=== PATIENT | male | born 1960 | race Caucasian/White ===

== ENCOUNTER → 2017-10-20 16:19 | Outpatient (CLI) | payer MEDICARE ==
[2012-02-10 12:42] VITALS: BMI 48.2
[~2017-10-20 16:19] MED LIST: AMITRIPTYLINE H50 MG PO; COLCRYS0.6 MG PO; COREG6.25 MG PO; DICLOFENAC SODI50 MG PO; DILAUDID2 MG PO; FOLIC ACID1 MG PO; HYDROCODONE-APA1 TAB PO; KLOR-CON M2020 MEQ PO; LASIX40 MG PO; LIPITOR10 MG PO; LISINOPRIL5 MG PO; LYRICA75 MG PO; OMEPRAZOLE20 M1 PO; SYNTHROID100 MCG PO; TRICOR145 MG PO; ULORIC80 MG PO; VITAMIN B-1100 M1 PO; VITAMIN B-121000 MCG PO; VITAMIN B650 MG PO; VODKA PO; XANAX1 MG PO; XARELTO10 MG PO; XARELTO20 MG PO
[2017-12-03 11:33] VITALS: BMI 39.3
== END | disposition home or self-care (01) ==
LOC: D.LABREF 16:19
DX: M17.12 Unilateral primary osteoarthritis, left knee (principal); Z11.8 Encounter for screening for other infectious and parasitic diseases

== ENCOUNTER 2017-11-23 10:00 | Inpatient (IN) | payer MEDICARE, BC ==
[~2017-11-23] VITALS: Ht 182.9 cm; Wt 131.8 kg
--- NOTE | ~2017-11-23 | OP ---
PATIENT NAME: RAPHAEL BARGER MEDICAL RECORD: [id number] :60 LOCATION:[id number] ADMISSION DATE:11/28/17 SURGEON: MAGGI PIMENTEL MD DATE OF OPERATION: 11/28/2017 PREOPERATIVE DIAGNOSES: 1. Severe degenerative arthritis of the left knee. 2. Retained hardware from prior surgery. POSTOPERATIVE DIAGNOSES: 1. Severe degenerative arthritis of the left knee. 2. Retained hardware from prior surgery. PROCEDURE: 1. Left total knee arthroplasty. 2. Removal of previously placed hardware. SURGEON: Maggi Pimentel MD MANGLE ROLLER: DELFIN Sanchez. INTRAOPERATIVE COMPLICATIONS: None. SUMMARY OF PATHOLOGIC FINDINGS: The patient had severe degenerative arthritis tricompartmentally with extensile osteophytosis. Furthermore, the patient had 2 previously placed nick in 1975, which had to be removed. Removal of the femoral staple was relatively easy; however, upon trialed removal of the tibial nick, small medial tibial plateau fracture was incurred. This was intraoperatively fixed with a 4.0 compression cannulated screw and gave excellent stability. IMPLANTS USED: Hawthorne triathlon total knee arthroplasty with a size 7 cruciate retaining femoral component, a size 6 universal tibial baseplate with a cemented 12 x 50 mm stem, a size 6 CS 9 mm insert, and a size 33 x 9 polyethylene component. Note, all components were cemented into place. INDICATIONS: Mr. Barger is a 57-year-old gentleman who originally had a traumatic injury to his knee in the 1970s and had multiple operative interventions. Eventually, he had severe osteoarthritis as noted above. After all conservative measures had failed, he presented for total knee arthroplasty. OPERATIVE SUMMARY IN DETAIL: After obtaining the appropriate preoperative orthopedic surgery consent as well as anesthetic consultation, evaluation and clearance, the patient was brought to the operating room and placed on the operating table in supine position. After general laryngeal mask airway was administered, the patient's left lower extremity was prepped and draped in routine sterile fashion. Please note that the tourniquet was not used on this case at all given the patient's extreme hypercoagulable state. Incision was made for paramedian arthrotomy. At all times, Aquamantys was used to control bleeding. Paramedian arthrotomy was performed and again Aquamantys was used to control all retinacular bleeding along with the intraoperative Bovie. Immediately upon entering the joint, the patient's severe osteoarthritis was noted. Dissection was carried down, the patella was everted, the distal fat pad was removed. Substantial osteophytes were removed about the anterior aspect of the tibia, medial and lateral aspect of the femur as well as superior aspect of OPERATIVE REPORT [id number] RAPHAEL BARGER the femur. Intramedullary guide hole was created for distal femoral intramedullary guided cuts. After cutting the distal femur, attention was turned to the proximal tibia. Likewise here, intramedullary guide hole was created. Upon cutting the proximal tibia, the staple was encountered, cut around. The staple was divided and a substantial amount of time was taken to try and remove the staple. Small medial tibial plateau fracture was incurred. Large reduction clamps were then utilized to hold it in place as the staple was removed. At this point, a small 45 mm compression screw was placed across the fracture and resulted in excellent stability to continue with the total knee. After cutting and smoothing the tibial baseplate, the appropriate measurements were taken. Distal femoral chamfer cuts were then made and the trials were put into place. Trials were put into place and placed in the appropriate position, pinned, and taken through range of motion and found to be stable in all planes. Having completed this, the distal femur was repaired and the proximal tibia was then prepared for a 50 mm x 12 cemented stem for added stability of these large bands of tibial plateau. Having completed all the preparations and all trial components had been removed, the patella was cut for resurfacing and prepared for final implantation. At this point, prior to putting the total knee in, a substantial amount of time was taken to clean out substantial amount of loose bodies osteophytes from the posterior aspect of the knee as well as around the capsule of the knee. The Aquamantys was then used to coagulate the posterior capsule. Having completed this, the bone ends were copiously irrigated with pulsatile lavage irrigation, dried, and the components were put into place. All excess cement was removed. After the cement was allowed to harden, the knee was taken through range of motion and found to be stable in all planes. Further irrigation was then followed by placing a [address] Capsule was then closed with #2 Ethibond followed by #1 Vicryl, 2-0 Vicryl and skin nick. This was then further dressed with a Prevena wound suction drainage. Having completed this, sterile dressings were applied. The patient was awakened, taken to recovery room in stable condition. All final needle and sponge counts were correct. TRANSINT:[id number] Voice Confirmation ID: [id number] DOCUMENT ID: [id number] MAGGI PIMENTEL MD at 1419 CC: [id number] DICTATION DATE: 11/28/17 1252 KILN LABOURER: 11/28/17 1313 ADM IN [facility] [address] [id number]
[~2017-11-23 10:00] MED LIST changes: -DILAUDID2 MG PO; -VODKA PO; -XARELTO20 MG PO
[2017-11-23 12:46] LABS: BASOPHILS 0.4 % (0-2); EOSINOPHILS 0 % (0-7); HEMATOCRIT 42.4 % (42.0-54.0); HEMOGLOBIN 15.8 g/dL (13.5-17.5); IMMATURE GRANULOCYTES 0.4 % (0-5); LYMPHOCYTES 34.9 % (15-50); MCH 36.1 pg (26.0-34.0); MCHC 37.3 g/dL (31.0-37.0); MCV 96.8 fL (80.0-100.0); MEAN PLATELET VOLUME 8.9 fL (7.4-10.4); MONOCYTES 7.8 % (2-11); NEUTROPHILS 56.5 % (40-80); PLATELET COUNT 176 10x3/uL (130-400); RBC 4.38 10x6/uL (4.20-6.10); RDW 15.3 % (11.5-14.5); WBC 5.3 10x3/uL (4.8-10.8)
[2017-11-23 12:58] LABS: APTT 30.5 SECONDS (22.8-39.4); CALC OSMOLALITY 262 mosm/kg (275-300); CALCIUM 8.4 mg/dL (8.5-10.1); CARBON DIOXIDE 22.3 mmol/L (21.0-32.0); CHLORIDE - SERUM 92 mmol/L (98-107); CREATININE - SERUM 0.8 mg/dL (0.6-1.3); GLUCOSE 90 mg/dL (74-106); INR 1.15 (0.85-1.17); POTASSIUM - SERUM 3.5 mmol/L (3.5-5.1); PROTIME 14.3 SECONDS (11.6-15.0); SODIUM 132 mmol/L (136-145); UREA NITROGEN 8 mg/dL (7-18); eGFR NON AFRICAN AMERICAN > 90 mL/min (90-120)
[2017-11-23 13:14] LABS: APPEARANCE CLEAR (CLEAR); BILIRUBIN NEGATIVE (NEGATIVE); COLOR YELLOW (YELLOW); GLUCOSE NEGATIVE (NEGATIVE); KETONE SMALL mg/dL (NEGATIVE); NITRITE NEGATIVE (NEGATIVE); PROTEIN NEGATIVE (NEGATIVE); SPECIFIC GRAVITY 1.015 (1.005-1.020); UROBILINOGEN NORMAL (NORMAL)
[2017-11-28 07:05] VITALS: BP 136/78; BMI 39.4
[2017-11-28 07:37] LABS: APTT 30.3 SECONDS (22.8-39.4); INR 0.98 (0.85-1.17); PROTIME 12.6 SECONDS (11.6-15.0)
[2017-11-28 11:44] VITALS: BP 139/115
[2017-11-28 12:23] VITALS: BP 135/84; BMI 39.4
[2017-11-28 21:01] VITALS: BP 117/67
[2017-11-29 04:57] VITALS: BP 125/77
[2017-11-29 06:23] LABS: HEMATOCRIT 31.1 % (42.0-54.0); HEMOGLOBIN 11.1 g/dL (13.5-17.5); MCH 35.4 pg (26.0-34.0); MCHC 35.7 g/dL (31.0-37.0); MEAN PLATELET VOLUME 9.7 fL (7.4-10.4); RBC 3.14 10x6/uL (4.20-6.10); RDW 15.3 % (11.5-14.5); WBC 8.6 10x3/uL (4.8-10.8)
[2017-11-29 13:27] VITALS: BP 128/87
[2017-11-29 17:44] VITALS: BP 153/79
[2017-11-29 19:28] VITALS: Ht 182.9 cm; Wt 131.8 kg
[2017-11-29 21:10] VITALS: BP 136/85
[2017-11-30 05:07] VITALS: BP 143/91
[2017-11-30 05:10] LABS: HEMATOCRIT 29.7 % (42.0-54.0); HEMOGLOBIN 10.3 g/dL (13.5-17.5); MCH 35.4 pg (26.0-34.0); MCHC 34.7 g/dL (31.0-37.0); MEAN PLATELET VOLUME 9.2 fL (7.4-10.4); RBC 2.91 10x6/uL (4.20-6.10); RDW 15.9 % (11.5-14.5)
[2017-11-30 05:21] LABS: MCV 102.1 fL (80.0-100.0); WBC 6.3 10x3/uL (4.8-10.8)
[2017-11-30 08:48] VITALS: BP 140/80
[2017-11-30 12:10] VITALS: BP 135/87
[2017-11-30 16:57] VITALS: BP 117/74
[2017-11-30 21:11] VITALS: BP 129/82
[2017-12-01] VITALS (9 sets, daily range): BP systolic 129–156; BP diastolic 70–96
[2017-12-01 09:24] LABS: BASOPHILS 0.2 % (0-2); EOSINOPHILS 1.2 % (0-7); HEMATOCRIT 28.2 % (42.0-54.0); HEMOGLOBIN 9.8 g/dL (13.5-17.5); MCH 35.9 pg (26.0-34.0); MCHC 34.8 g/dL (31.0-37.0); MCV 103.3 fL (80.0-100.0); MEAN PLATELET VOLUME 8.8 fL (7.4-10.4); MONOCYTES 12.6 % (2-11); PLATELET COUNT 100 10x3/uL (130-400); RBC 2.73 10x6/uL (4.20-6.10); RDW 16.1 % (11.5-14.5); WBC 4.9 10x3/uL (4.8-10.8)
[2017-12-01] MEDS ORDERED: XARELTO20 MG PO (12:29)
[2017-12-01] MEDS ORDERED: DILAUDID2 MG PO (12:30)
[2017-12-01] MEDS ORDERED: VODKA PO (12:32)
[2017-12-02 04:44] VITALS: BP 125/82
[2017-12-02 08:36] VITALS: BP 135/83
[2017-12-02 09:24] LABS: MCH 35.4 pg (26.0-34.0); MCHC 34.4 g/dL (31.0-37.0); MCV 102.9 fL (80.0-100.0); MEAN PLATELET VOLUME 8.7 fL (7.4-10.4); RDW 17.2 % (11.5-14.5)
[2017-12-02 09:25] LABS: HEMOGLOBIN 12.4 g/dL (13.5-17.5); RBC 3.5 10x6/uL (4.20-6.10); WBC 6.6 10x3/uL (4.8-10.8)
[2017-12-02 12:07] VITALS: BP 153/86
== END 2017-12-02 18:25 | DRG 470 ==
LOC: D.MS 11-28 06:35 → D.SDCHOLD 11-28 06:35 → D.MS 11-28 11:26
PROVIDERS: Anesthesiology; Internal Medicine Hematology & Oncology; Orthopaedic Surgery
PROC: 0QSH04Z Reposition Left Tibia with Internal Fixation Device, Open Approach (ICD-10-PCS; 2017-11-28)
PROC: 0SRD0J9 Replacement of Left Knee Joint with Synthetic Substitute, Cemented, Open Approach (ICD-10-PCS; principal; 2017-11-28 08:15)
DX: M17.12 Unilateral primary osteoarthritis, left knee (principal); M96.672 Fracture of tibia or fibula following insertion of orthopedic implant, joint prosthesis, or bone plate, left leg; D68.51 Activated protein C resistance; Y83.9 Surgical procedure, unspecified as the cause of abnormal reaction of the patient, or of later complication, without mention of misadventure at the time of the procedure; Y82.8 Other medical devices associated with adverse incidents; E11.9 Type 2 diabetes mellitus without complications; I10 Essential (primary) hypertension; I73.9 Peripheral vascular disease, unspecified; I95.9 Hypotension, unspecified; E66.9 Obesity, unspecified; Z68.39 Body mass index [BMI] 39.0-39.9, adult; Z86.718 Personal history of other venous thrombosis and embolism; D69.6 Thrombocytopenia, unspecified

== ENCOUNTER 2017-11-24 13:47 | Emergency (ER) | payer MEDICARE, BC ==
[~2017-11-24] VITALS: Ht 182.9 cm; Wt 131.8 kg
[2017-11-24 14:05] VITALS: Ht 182.9 cm; Wt 131.8 kg
[2017-11-24 15:23] LABS: BASOPHILS 0.2 % (0-2); EOSINOPHILS 1.7 % (0-7); HEMATOCRIT 41.9 % (42.0-54.0); HEMOGLOBIN 15.3 g/dL (13.5-17.5); IMMATURE GRANULOCYTES 0.6 % (0-5); LYMPHOCYTES 14.9 % (15-50); MCH 36.3 pg (26.0-34.0); MCHC 36.5 g/dL (31.0-37.0); MCV 99.5 fL (80.0-100.0); MEAN PLATELET VOLUME 9.1 fL (7.4-10.4); MONOCYTES 9.8 % (2-11); NEUTROPHILS 72.8 % (40-80); PLATELET COUNT 141 10x3/uL (130-400); RBC 4.21 10x6/uL (4.20-6.10); RDW 15.5 % (11.5-14.5); WBC 5.3 10x3/uL (4.8-10.8)
[2017-11-24 15:34] LABS: INR 1.67 (0.85-1.17); PROTIME 19.2 SECONDS (11.6-15.0)
[2017-11-24 15:37] LABS: APPEARANCE CLEAR (CLEAR); BILIRUBIN NEGATIVE (NEGATIVE); COLOR DK YELLOW (YELLOW); GLUCOSE NEGATIVE (NEGATIVE); KETONE NEGATIVE (NEGATIVE); NITRITE NEGATIVE (NEGATIVE); PROTEIN NEGATIVE (NEGATIVE); SPECIFIC GRAVITY 1.005 (1.005-1.020); UROBILINOGEN NORMAL (NORMAL)
[2017-11-24 15:51] LABS: ALBUMIN 3.3 g/dL (3.4-5.0); ALKALINE PHOSPHATASE 113 U/L (46-116); ALT (SGPT) 136 U/L (10-68); BILIRUBIN - TOTAL 1.15 mg/dL (0.2-1.3); CALC OSMOLALITY 270 mosm/kg (275-300); CALCIUM 8.8 mg/dL (8.5-10.1); CHLORIDE - SERUM 95 mmol/L (98-107); GLUCOSE 114 mg/dL (74-106); POTASSIUM - SERUM 3.9 mmol/L (3.5-5.1); PROTEIN - SERUM 6.8 g/dL (6.4-8.2); SODIUM 136 mmol/L (136-145); UREA NITROGEN 8 mg/dL (7-18)
[2017-11-24 15:53] LABS: AMYLASE - SERUM 30 U/L (25-115); C-REACTIVE PROTEIN 0.4 mg/dL (0.0-0.9); CKMB 0.8 U/L (0.0-3.6); CREATINE KINASE 38 UL (21-232); LIPASE 154 U/L (73-393); THYROID STIMULATING HORMONE 5.37 uIU/mL (0.36-3.74)
[2017-11-24 15:54] LABS: CARBON DIOXIDE 29.7 mmol/L (21.0-32.0); CREATININE - SERUM 1.3 mg/dL (0.6-1.3); TROPONIN-I < 0.017 ng/mL (0.000-0.060); eGFR NON AFRICAN AMERICAN 60 mL/min (90-120)
[2017-11-24 22:32] VITALS: BP 125/72
== END 2017-11-24 22:33 | disposition home or self-care (01) ==
LOC: D.ER 13:47
PROVIDERS: Family Medicine
DX: I95.1 Orthostatic hypotension (principal); E11.9 Type 2 diabetes mellitus without complications; I10 Essential (primary) hypertension; K21.9 Gastro-esophageal reflux disease without esophagitis; Z85.46 Personal history of malignant neoplasm of prostate; D68.51 Activated protein C resistance

== ENCOUNTER 2017-12-02 19:31 | Inpatient (IN) | payer MEDICARE, BC ==
[~2017-12-02] VITALS: Ht 182.9 cm; Wt 131.5 kg
--- NOTE | ~2017-12-02 | DS ---
PATIENT:RAPHAEL BARGER :60 MEDICAL RECORD: [id number] DISCHARGE SUMMARY ADMISSION DATE: 12/02/17 DISCHARGE DATE: 12/10/17 This is a discharge dated 12/10/2017 from inpatient rehab. PRIMARY DIAGNOSIS: Decreased functional ability and ability to provide activities of daily living, status post left total knee replacement. SECONDARY DIAGNOSES: 1. 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 2. Diabetes. 3. Neuropathy. 4. Obstructive sleep apnea, on BiPAP. 5. Morbid obesity. 6. Depression/anxiety. 7. Hypertension. 8. Hyperlipidemia. 9. Hypokalemia. 10. ETOH abuse. 11. History of DVT. 12. Gastroesophageal reflux disease. 13. Osteoarthritis. 14. History of kidney stones. 15. Acute blood loss anemia. 16. Hypothyroidism. HOSPITAL COURSE: Full H&P is located elsewhere on the chart on this 57-year-old male who was admitted to inpatient rehab for physical therapy and occupational therapy to improve gait, transfer skills, bed mobility, and activities of daily living to modified independent level. He was evaluated by PT and OT and their plans of care were followed. He required intermediate care for observation and assessment, medication administration as well as wound care and monitoring of surgical incision. Electrolytes were managed by protocol. He remained on appropriate home medications. Fingerstick blood sugars were monitored throughout his hospital stay with appropriate adjustment in medications as needed. He was cooperative with therapies, progressing towards goals. Case management was involved for discharge planning. He was considered stable for discharge on 12/10/2017. DISCHARGE MEDICATIONS: As per discharge medication reconciliation. DISCHARGE DISPOSITION: The patient is discharged home. He will continue his current diet and level of activity. He will follow up with primary care and specialists as directed. At least 30 minutes was spent in this discharge activity. TRANSINT:[id number] Voice Confirmation ID: [id number] DOCUMENT ID: [id number] Dictated By: CHAYA PERAZA I have interviewed/examined the above patient and agree with these documented findings. DISCHARGE SUMMARY REPORT [id number] CHARBELRAPHAELZARINA SHARMA MD at 1818 at 1904 CC: [id number] DICTATION DATE: 01/08/18 1438 INTERVENTIONAL RADIOLOGY RN: 10/28/18 1959 DIS IN 12/10/17 [facility] [address] [facility] [place] [place] [address]
--- NOTE | ~2017-12-02 | RHP ---
PATIENT: RAPHAEL BARGER MEDICAL RECORD: [id number] ACCOUNT: [id number] LOCATION:[facility]1115 : 60 ADMISSION DATE: 12/02/17 REHABILITATION HISTORY AND PHYSICAL EXAMINATION POST ADMISSION PHYSICIAN EXAMINATION POST-ADMISSION PHYSICAL EXAM AND HISTORY AND PHYSICAL DATE OF ADMISSION: 12/02/2017 ADMITTING DIAGNOSIS: Debility secondary to recent left total knee replacement and postop complications. HISTORY OF PRESENT ILLNESS: The patient was admitted to the inpatient rehab with debility secondary to a left total knee with postop complications. This is a 57-year-old morbidly obese gentleman who is admitted to acute hospital for left TKA. He has had increasing knee pain and causing impairment in his mobility. He underwent a left total knee replacement on 11/28/2017, was diagnosed with an inherited hypercoagulability that causes issues with clotting factors and has a history of blood clots. He has been receiving anticoagulation therapy bridging with Lovenox to Xarelto for therapeutic level of blood thinner to prevent postop blood clots. He has had postop complications to include postoperative blood loss anemia. He has received a unit of blood. He has been having increased pain, impaired mobility, self-care deficit. The paper box cutter has been consulted during his acute hospital stay to monitor his hypercoagulability, factor V Leiden mutation and hyperhomocysteinemia. He has got a history of DVT and PE. He also has a history of neuropathy, diabetes, thyroid problems, hypertension, cholesterol problems, obstructive sleep apnea for which he wears a BiPAP. He has got a factor V deficiency. He has got MTHR deficiency. He has got a history of depression, kidney stones, and alcohol abuse. He lives at home alone, was independent with ADLs and moderately independent with his mobility. He states he lost 120 pounds to have this knee surgery done and his right knee is also in bad shape. He and his sister plan on him to return home after this at his prior level of functioning or better if possible. COMORBIDITIES: In this patient include postop blood loss anemia, acute hypotension, orthostatic hypotension, osteoarthritis, diabetes, history of DVT, obesity with a BMI greater than 30, inherited hypercoagulability, ETOH use and bridging anticoagulation. PAST MEDICAL HISTORY: Significant for neuropathy, diabetes, thyroid problems, hypertension, cholesterol, prostate cancer, factor V deficiency, MTHR deficiency, acid reflux, depression, kidney stones, prostate problems and alcohol abuse. PAST SURGICAL HISTORY: Includes shoulder surgery times 3, knee surgery times 5. He has had a biopsy of his lymph nodes in the past and prostatectomy. ALLERGIES: PENICILLIN. CURRENT MEDICATIONS: He is on vodka, he takes 60 cc daily. He is on a multivitamin daily. He is on Xarelto 20 mg daily, pyridoxine 100 mg daily, Lyrica 75 mg daily. He is on potassium 20 mEq daily, Protonix 40 mg daily, Synthroid 100 mcg daily, furosemide 40 mg daily, folic acid 1 mg daily, HISTORY AND PHYSICAL [id number] RAPHAEL BARGER fenofibrate 145 mg daily, Uloric 80 mg daily, B12 3000 units daily orally. He is on Colcrys 0.6 mg daily, Lipitor 10 mg daily, Dilaudid 4 mg q.4 hours p.r.n. pain, amitriptyline 50 mg at bedtime, Xanax 1 mg t.i.d. p.r.n., and polyethylene glycol 17 grams in 8 ounces of water daily. HABITS: He does have a history of alcohol use. FAMILY HISTORY: Noncontributory. SOCIAL HISTORY: The patient hopes to return back home and get back to his prior level of functioning. REVIEW OF SYSTEMS: GENERAL: Does complain of weakness and fatigue. HEENT: Denies cold, cough, or congestion. CARDIOVASCULAR: Denies chest pain. PHYSICAL EXAMINATION: VITAL SIGNS: Stable, afebrile. GENERAL: A morbidly obese gentleman in no acute distress, alert upon exam. HEENT: Normocephalic and atraumatic. Mucosa moist. NECK: Supple. No lymphadenopathy. LUNGS: Clear in upper youngblood. HEART: Regular rate and rhythm. He is a little bit tachycardic. ABDOMEN: Benign. EXTREMITIES: Consistent with postop swelling that appears normal at this time. NEUROLOGIC: He is intact. LABORATORY DATA: His sodium is 139, potassium 3.3, BUN and creatinine of 13 and 1.1 and blood sugar is noted to be 107. His white count is 5.0, H&H of 10 and 30 and platelet count was noted to be 126. His MCV is increased at 103.8 consistent with his alcohol use. ASSESSMENT: This is a 57-year-old gentleman admitted to the rehab with a working diagnosis of debility after having total knee replacement and morbid obesity. The patient has potential to make improvement. We instituted the following multidisciplinary therapies including, but not limited to physical, occupational, respiratory, speech, nutritional services, prosthetics and orthotics. Given his complex medical condition and risk for more complications, rehabilitation services cannot be provided at a low level of care such as correction facility. PLAN: 1. Admit to [facility] for intensive inpatient therapy to include the following disciplines: A. Physical therapy to improve gait, all transfer skills and bed mobility to a modified independent level. B. Occupational therapy to improve activities of daily living to a modified independent level. C. Case management to assist with discharge planning and placement options. D. Nutrition to assist with nutritional needs. E. Rehabilitation nursing to assist in monitoring the patient's underlying medical conditions and to assist with any type of bowel or bladder management. 2. The patient's current medication and medical care will be continued. 3. The patient will be placed on standard fall precautions. HISTORY AND PHYSICAL [id number] RAPHAEL BARGER 4. The patient's estimated length of stay is approximately 7-10 days. 5. We will discuss this patient during care team staff meeting this week. I am going to go ahead and add some Coreg back to his medical regimen, which he has been on in the past secondary to his tachycardia. We will continue on blood thinners and I am going to follow up again in the a.m. TRANSINT:[id number] Voice Confirmation ID: [id number] DOCUMENT ID: [id number] MINO notes whether there has been none or any medical/functional change since admission: - No change since preadmission screen. MINO attests patient continues to be appropriate for IRF: - Continues to be appropriate. ZARINA ESPINOZA MD at 1244 CC: [id number] DICTATION DATE: 12/03/171756 SUPERVISOR CONCRETE STONE FABRICATING: 12/03/171953 DIS IN 12/10/17 [facility] [address] [id number]
[~2017-12-02 19:31] MED LIST changes: +DILAUDID2 MG PO; +VODKA PO; +XARELTO20 MG PO
[2017-12-02 20:00] VITALS: BP 162/102
[2017-12-02 21:12] VITALS: BP 162/102; BMI 39.4
[2017-12-03 06:05] LABS: BASOPHILS 0.2 % (0-2); EOSINOPHILS 0 % (0-7); HEMATOCRIT 30.2 % (42.0-54.0); HEMOGLOBIN 10.5 g/dL (13.5-17.5); IMMATURE GRANULOCYTES 1.2 % (0-5); LYMPHOCYTES 22.5 % (15-50); MCH 36.1 pg (26.0-34.0); MCHC 34.8 g/dL (31.0-37.0); MCV 103.8 fL (80.0-100.0); MEAN PLATELET VOLUME 8.4 fL (7.4-10.4); MONOCYTES 15.7 % (2-11); NEUTROPHILS 60.4 % (40-80); RBC 2.91 10x6/uL (4.20-6.10)
[2017-12-03 06:06] LABS: PLATELET COUNT 126 10x3/uL (130-400)
[2017-12-03 06:21] LABS: ANION GAP 8.8 mmol/L (8-16); CALCIUM 7.9 mg/dL (8.5-10.1); CARBON DIOXIDE 32.5 mmol/L (21.0-32.0); CREATININE - SERUM 1.1 mg/dL (0.6-1.3); POTASSIUM - SERUM 3.3 mmol/L (3.5-5.1)
[2017-12-03 08:56] VITALS: BP 154/97
[2017-12-03 11:33] VITALS: Ht 182.9 cm; Wt 131.5 kg
[2017-12-03 21:54] VITALS: BP 114/73
[2017-12-04 09:04] VITALS: BP 152/101
[2017-12-04 17:42] VITALS: BP 134/85
[2017-12-04 20:51] VITALS: BP 98/56
[2017-12-05 06:43] LABS: BASOPHILS 0.4 % (0-2); EOSINOPHILS 2.9 % (0-7); HEMATOCRIT 30.3 % (42.0-54.0); HEMOGLOBIN 10.3 g/dL (13.5-17.5); IMMATURE GRANULOCYTES 2.9 % (0-5); LYMPHOCYTES 21.2 % (15-50); MCH 35.2 pg (26.0-34.0); MCV 103.4 fL (80.0-100.0); NEUTROPHILS 54.6 % (40-80); RBC 2.93 10x6/uL (4.20-6.10); RDW 16.5 % (11.5-14.5); WBC 4.8 10x3/uL (4.8-10.8)
[2017-12-05 06:55] LABS: CALC OSMOLALITY 278 mosm/kg (275-300); CALCIUM 8.4 mg/dL (8.5-10.1); CARBON DIOXIDE 29.6 mmol/L (21.0-32.0); CHLORIDE - SERUM 102 mmol/L (98-107); GLUCOSE 102 mg/dL (74-106); POTASSIUM - SERUM 3.3 mmol/L (3.5-5.1); SODIUM 139 mmol/L (136-145); UREA NITROGEN 14 mg/dL (7-18); eGFR NON AFRICAN AMERICAN 82 mL/min (90-120)
[2017-12-05 07:00] LABS: PLATELET COUNT 202 10x3/uL (130-400)
[2017-12-05 08:00] VITALS: BP 120/66
[2017-12-06 07:00] VITALS: BP 143/90
[2017-12-06 20:09] VITALS: BP 141/88
[2017-12-07 06:50] LABS: BASOPHILS 0.4 % (0-2); EOSINOPHILS 2.6 % (0-7); HEMATOCRIT 31.5 % (42.0-54.0); HEMOGLOBIN 10.6 g/dL (13.5-17.5); IMMATURE GRANULOCYTES 3.4 % (0-5); LYMPHOCYTES 26.4 % (15-50); MCH 34.2 pg (26.0-34.0); MCHC 33.7 g/dL (31.0-37.0); MCV 101.6 fL (80.0-100.0); MEAN PLATELET VOLUME 8.6 fL (7.4-10.4); NEUTROPHILS 51.2 % (40-80); PLATELET COUNT 208 10x3/uL (130-400); WBC 4.9 10x3/uL (4.8-10.8)
[2017-12-07 07:03] LABS: ANION GAP 10.8 mmol/L (8-16); CALCIUM 8.5 mg/dL (8.5-10.1); CARBON DIOXIDE 28.8 mmol/L (21.0-32.0); CREATININE - SERUM 1.1 mg/dL (0.6-1.3); POTASSIUM - SERUM 3.6 mmol/L (3.5-5.1)
[2017-12-07 08:27] VITALS: BP 130/72
[2017-12-07 16:13] VITALS: BP 119/71
[2017-12-07 20:29] VITALS: BP 144/89
[2017-12-08 08:00] VITALS: BP 120/79
[2017-12-08 19:00] VITALS: BP 127/74
[2017-12-09 07:10] LABS: BASOPHILS 0.4 % (0-2); EOSINOPHILS 2.6 % (0-7); HEMOGLOBIN 10.1 g/dL (13.5-17.5); IMMATURE GRANULOCYTES 1.7 % (0-5); LYMPHOCYTES 20.2 % (15-50); MCH 34.6 pg (26.0-34.0); MCHC 33.7 g/dL (31.0-37.0); MCV 102.7 fL (80.0-100.0); MEAN PLATELET VOLUME 8.7 fL (7.4-10.4); MONOCYTES 11.9 % (2-11); NEUTROPHILS 63.2 % (40-80); PLATELET COUNT 219 10x3/uL (130-400); RBC 2.92 10x6/uL (4.20-6.10); RDW 15.8 % (11.5-14.5); WBC 4.7 10x3/uL (4.8-10.8)
[2017-12-09 07:19] LABS: CALCIUM 8.5 mg/dL (8.5-10.1); CARBON DIOXIDE 29.8 mmol/L (21.0-32.0); CREATININE - SERUM 1.1 mg/dL (0.6-1.3); POTASSIUM - SERUM 3.8 mmol/L (3.5-5.1)
[2017-12-09 08:00] VITALS: BP 122/77
[2017-12-09] MEDS ORDERED: COREG6.25 MG PO (08:51)
[2017-12-09] MEDS ORDERED: NORCO 10-325 TA1 TAB PO (08:55)
[2017-12-09 19:00] VITALS: BP 121/69
[2017-12-10 08:00] VITALS: BP 121/67
== END 2017-12-10 15:23 | disposition home or self-care (01) | DRG 948 ==
LOC: D.REHAB 19:31
PROVIDERS: Emergency Medicine
DX: R53.81 Other malaise (principal); D68.2 Hereditary deficiency of other clotting factors; D62 Acute posthemorrhagic anemia; I95.1 Orthostatic hypotension; M19.90 Unspecified osteoarthritis, unspecified site; E11.9 Type 2 diabetes mellitus without complications; E66.01 Morbid (severe) obesity due to excess calories; Z72.89 Other problems related to lifestyle; K21.9 Gastro-esophageal reflux disease without esophagitis; Z86.718 Personal history of other venous thrombosis and embolism; Z96.652 Presence of left artificial knee joint; T84.84XD Pain due to internal orthopedic prosthetic devices, implants and grafts, subsequent encounter; Z68.39 Body mass index [BMI] 39.0-39.9, adult

== ENCOUNTER → 2018-01-31 16:02 | Outpatient (CLI) | payer MEDICARE, BC ==
[2017-12-03 11:33] VITALS: BMI 39.3
[~2018-01-31 16:02] MED LIST changes: +DILAUDID4 MG; +LOVENOX120 MG/0.8 SC; +NORCO 10-325 TA1 TAB PO
== END | disposition home or self-care (01) ==
LOC: D.LABREF 16:02
DX: M17.11 Unilateral primary osteoarthritis, right knee (principal); Z11.8 Encounter for screening for other infectious and parasitic diseases

== ENCOUNTER 2018-02-13 08:50 | Inpatient (IN) | payer MEDICARE, BC ==
[~2018-02-13] VITALS: Ht 182.9 cm; Wt 136.4 kg
[2018-02-13] VITALS (11 sets, daily range): BP systolic 96–143; BP diastolic 52–96; BMI 40.8
--- NOTE | ~2018-02-13 | MORECARE ---
CASE MANAGEMENT DISCHARGE SUMMARY PATIENT: RAPHAEL BARGER UNIT: [id number] ADM DATE: 02/13/18 AGE: 57 : 60 SEX: M ROOM/BED: D.2214 AUTHOR: HAYDER,DOC PHYSICIAN: REFERRING PHYSICIAN: MAGGI PIMENTEL MD DATE OF SERVICE: 02/14/18 Discharge Plan Patient Name: RAPHAEL BARGER Facility: [facility]:[place] : 1960 Planned Disposition: Inpatient Rehab Anticipated Discharge Date: Discharge Date: Expected LOS: Initial Reviewer: [email or web address] Initial Review Date: 02/13/2018 Generated: 02/14/18 5:15 pm Comments DCP- Discharge Planning Updated by [email or web address]: Marge Jung on 02/14/18 3:[address] Patient Name: RAPHAEL BARGER Admission Status: Elective Accout number: [id number] Admission Date: 02-13-2018 : 1960 Admission Diagnosis: Attending: MAGGI PIMENTEL Current LOS: 1 Anticipated DC Date: Planned Disposition: Inpatient Rehab Primary Insurance: MEDICARE A & B Discharge Planning Comments: CM met with patient to asses discharge planning needs. Patient lives home alone and would like to go to our Inpatient rehab at [facility]. He will need a CPM at [place]. His sister will be his motor bus driver home. He has one step to enter in his home. He has a glucometer , BSC, and walker at home CM will continue to follow and assist with DC planning as needed Chin Strap Sewer: Marge Jung DCPIA - Discharge Planning Initial Assessment Updated by [email or web address]: Marge Jung on 02/14/18 3:58 pm * Is the patient Alert and Oriented? Yes * How many steps to enter\exit or inside your home? * PCP JENS * [facility]acy [facility] * Preadmission Environment Home Alone * ADLs Independent * Equipment Bedside Commode Glucometer Rolling Walker * List name and contact numbers for known caregivers / representatives who currently or will assist patient after discharge: SU [phone] * Verbal permission to speak to the caregivers and representatives has been obtained from the patient. N/A * Community resources currently utilized None * Additional services required to return to the preadmission environment? Yes * Can the patient safely return to the preadmission environment? No * Has this patient been hospitalized within the prior 30 days at any hospital? No Last DP export: 02/14/18 3:02 p Patient Name: RAPHAEL BARGER Page [id number] at 1615 All edits/amendments must be made on the electronic document DICTATION DATE: 02/14/181614 BUSINESS SPECIALIST: JOSE 02/14/181614 RPT#: [id number] DC DATE: STATUS: ADM IN [facility] [address] [place] [address] END OF REPORT
--- NOTE | ~2018-02-13 | MORECARE ---
CASE MANAGEMENT DISCHARGE SUMMARY PATIENT: RAPHAEL BARGER UNIT: [id number] ADM DATE: 02/13/18 AGE: 57 : 60 SEX: M ROOM/BED: D.2214 AUTHOR: GORDON SINGLETARY PHYSICIAN: REFERRING PHYSICIAN: MAGGI PIMENTEL MD DATE OF SERVICE: 02/14/18 Discharge Plan Patient Name: RAPHAEL BARGER Facility: [facility]:[place] : 1960 Planned Disposition: Inpatient Rehab Anticipated Discharge Date: Discharge Date: Expected LOS: Initial Reviewer: [email or web address] Initial Review Date: 02/13/2018 Generated: 02/14/18 5:02 pm DCPIA - Discharge Planning Initial Assessment Updated by [email or web address]: Marge Jung on 02/14/18 3:58 pm * Is the patient Alert and Oriented? Yes * How many steps to enter\exit or inside your home? * PCP JENS * [facility] [address] * Preadmission Environment Home Alone * ADLs Independent * Equipment Bedside Commode Glucometer Rolling Walker * List name and contact numbers for known caregivers / representatives who currently or will assist patient after discharge: SU [phone] * Verbal permission to speak to the caregivers and representatives has been obtained from the patient. N/A * Community resources currently utilized None * Additional services required to return to the preadmission environment? Yes * Can the patient safely return to the preadmission environment? No * Has this patient been hospitalized within the prior 30 days at any hospital? No Patient Name: RAPHAEL BARGER Page [id number] at 1602 All edits/amendments must be made on the electronic document DICTATION DATE: 02/14/18 1601 PRESS FEEDER BROOMCORN: JOSE 02/14/18 160 RPT#: [id number] DC DATE: STATUS: ADM IN [facility] [address] [place] [address] END OF REPORT
--- NOTE | ~2018-02-13 | MORECARE ---
CASE MANAGEMENT DISCHARGE SUMMARY PATIENT: RAPHAEL BARGER UNIT: [id number] ADM DATE: 02/13/18 AGE: 57 : 60 SEX: M ROOM/BED: D.2214 AUTHOR: HAYDER,DOC PHYSICIAN: REFERRING PHYSICIAN: MAGGI PIMENTEL MD DATE OF SERVICE: 02/17/18 Discharge Plan Patient Name: RAPHAEL BARGER Facility: [facility]:[place] : 1960 Planned Disposition: Inpatient Rehab Anticipated Discharge Date: Discharge Date: Expected LOS: Initial Reviewer: [email or web address] Initial Review Date: 02/13/2018 Generated: 02/17/18 5:31 pm Comments DCP- Discharge Planning Updated by [email or web address]: Marge Jung on 02/17/18 3:[address] [facility] STATED THAT THEY WOULD ACCEPT PATIENT ON TUESDAY IF HE IS STABLE TO BE DC DCP- Discharge Planning Updated by [email or web address]: Marge Jung on 02/16/18 12:[address] PATIENT HAS BEEN ACCEPTED TO INPATIENT REHAB, DUE TO HIS TEMP WILL WATCH TONIGHT PER JAZZ PISANO. IMM SERVED AND EXPLAINED DCP- Discharge Planning Updated by [email or web address]: Marge Jung on 02/14/18 3:[address] Patient Name: RAPHAEL BARGER Admission Status: Elective Accout number: [id number] Admission Date: 02-13-2018 : 1960 Admission Diagnosis: Attending: MAGGI PIMENTEL Current LOS: 1 Anticipated DC Date: Planned Disposition: Inpatient Rehab Primary Insurance: MEDICARE A & B Discharge Planning Comments: CM met with patient to asses discharge planning needs. Patient lives home alone and would like to go to our Inpatient rehab at [facility]. He will need a CPM at [place]. His sister will be his local bulk driver home. He has one step to enter in his home. He has a glucometer , BSC, and walker at home CM will continue to follow and assist with DC planning as needed Belt Glass Sander: Marge Jung DCPIA - Discharge Planning Initial Assessment Updated by [email or web address]: Marge Jung on 12/4/18 3:58 pm * Is the patient Alert and Oriented? Yes * How many steps to enter\exit or inside your home? * PCP JENS * [facility] [address] * Preadmission Environment Home Alone * ADLs Independent * Equipment Bedside Commode Glucometer Rolling Walker * List name and contact numbers for known caregivers / representatives who currently or will assist patient after discharge: SU [phone] * Verbal permission to speak to the caregivers and representatives has been obtained from the patient. N/A * Community resources currently utilized None * Additional services required to return to the preadmission environment? Yes * Can the patient safely return to the preadmission environment? No * Has this patient been hospitalized within the prior 30 days at any hospital? No Coverage Notice Reviewer: [email or web address] Chelo Jung Notice Issued Date-Time: 02/16/2018 12:30 Notice Type: IM Discharge Notice Notice Delivered To: Patient Relationship to Patient: Casino Change Attendant Name: Delivery Method: HAND - Hand Delivered Leana Days: Prior Verbal Notification: Recipient Understood Notice: Yes Recipient Signature: Yes Med Rec Note Co-signed by Attending: Coverage Notice Comment: Last DP export: 02/17/18 8:12 a Patient Name: RAPHAEL BARGER Page [phone] at 1632 All edits/amendments must be made on the electronic document DICTATION DATE: 02/17/18 163 DIGITAL SALES ASSISTANT: JOSE 02/17/18 1631 RPT#: [id number] DC DATE: STATUS: ADM IN [facility] [address] [place] [address] END OF REPORT
--- NOTE | ~2018-02-13 | MORECARE ---
CASE MANAGEMENT DISCHARGE SUMMARY PATIENT: RAPHAEL BARGER UNIT: [id number] ADM DATE: 02/13/18 AGE: 57 : 60 SEX: M ROOM/BED: D.2214 AUTHOR: HAYDER,DOC PHYSICIAN: REFERRING PHYSICIAN: MAGGI PIMENTEL MD DATE OF SERVICE: 02/16/18 Discharge Plan Patient Name: RAPHAEL BARGER Facility: [facility]:[place] : 1960 Planned Disposition: Inpatient Rehab Anticipated Discharge Date: Discharge Date: Expected LOS: Initial Reviewer: [email or web address] Initial Review Date: 02/13/2018 Generated: 02/16/18 2:51 pm Comments DCP- Discharge Planning Updated by [email or web address]: Marge Jung on 02/16/18 12:[address] PATIENT HAS BEEN ACCEPTED TO INPATIENT REHAB, DUE TO HIS TEMP WILL WATCH TONIGHT PER JAZZ PISANO. IMM SERVED AND EXPLAINED DCP- Discharge Planning Updated by [email or web address]: Marge Jung on 02/14/18 3:[address] Patient Name: RAPHAEL BARGER Admission Status: Elective Accout number: [id number] Admission Date: 02-13-2018 : 1960 Admission Diagnosis: Attending: MAGGI PIMENTEL Current LOS: 1 Anticipated DC Date: Planned Disposition: Inpatient Rehab Primary Insurance: MEDICARE A & B Discharge Planning Comments: CM met with patient to asses discharge planning needs. Patient lives home alone and would like to go to our Inpatient rehab at [facility]. He will need a CPM at [place]. His sister will be his wagon driver salesperson home. He has one step to enter in his home. He has a glucometer , BSC, and walker at home CM will continue to follow and assist with DC planning as needed First Officer: Marge Jung DCPIA - Discharge Planning Initial Assessment Updated by [email or web address]: Marge Jung on 02/14/18 3:58 pm * Is the patient Alert and Oriented? Yes * How many steps to enter\exit or inside your home? * PCP JENS * Pharmacy [facility] [address] * Preadmission Environment Home Alone * ADLs Independent * Equipment Bedside Commode Glucometer Rolling Walker * List name and contact numbers for known caregivers / representatives who currently or will assist patient after discharge: SU [phone] * Verbal permission to speak to the caregivers and representatives has been obtained from the patient. N/A * Community resources currently utilized None * Additional services required to return to the preadmission environment? Yes * Can the patient safely return to the preadmission environment? No * Has this patient been hospitalized within the prior 30 days at any hospital? No Coverage Notice Reviewer: [email or web address] Chelo Jung Notice Issued Date-Time: 02/16/2018 12:30 Notice Type: IM Discharge Notice Notice Delivered To: Patient Relationship to Patient: Records Administrator Name: Delivery Method: HAND - Hand Delivered Leana Days: Prior Verbal Notification: Recipient Understood Notice: Yes Recipient Signature: Yes Med Rec Note Co-signed by Attending: Coverage Notice Comment: Last DP export: 02/14/18 3:15 p Patient Name: RAPHAEL BARGER Page [id number] at 1352 All edits/amendments must be made on the electronic document DICTATION DATE: 02/16/18 1351 WIRE SAWYER: JOSE 02/16/18 1351 RPT#: [id number] DC DATE: STATUS: ADM IN [facility] [address] [place] [address] END OF REPORT
--- NOTE | ~2018-02-13 | MORECARE ---
CASE MANAGEMENT DISCHARGE SUMMARY PATIENT: RAPHAEL BARGER UNIT: [id number] ADM DATE: 02/13/18 AGE: 57 : 60 SEX: M ROOM/BED: D.2214 AUTHOR: HAYDER,DOC PHYSICIAN: REFERRING PHYSICIAN: MAGGI PIMENTEL MD DATE OF SERVICE: 02/20/18 Discharge Plan Patient Name: RAPHAEL BARGER Facility: [facility]:[place] : 1960 Planned Disposition: Inpatient Rehab Anticipated Discharge Date: Discharge Date: Expected LOS: Initial Reviewer: [email or web address] Initial Review Date: 02/13/2018 Generated: 02/20/18 1:03 pm Comments DCP- Discharge Planning Updated by [email or web address]: Marge Jung on 02/20/18 10:[address] Patient will be discharging to inpatient rehab today, room 1119 a. imm served and explained DCP- Discharge Planning Updated by [email or web address]: Cayla Issa on 02/18/18 2:[address] 1532 TC TO [facility] REHAB SCREENER. LEFT VM MESSAGE. QUESTION IF PATIENT WOULD TRANSFER THIS WEEKEND (TUESDAY) OR TUESDAY. PATIENT STILL WITH LOW GRADE TEMP. AWAIT CB. DCP- Discharge Planning Updated by [email or web address]: Marge Jung on 02/17/18 3:[address] [facility] WITH INPATIENT REHAB STATED THAT THEY WOULD ACCEPT PATIENT ON TUESDAY IF HE IS STABLE TO BE DC DCP- Discharge Planning Updated by [id number]: Marge Jung on 02/16/18 12:[address] PATIENT HAS BEEN ACCEPTED TO INPATIENT REHAB, DUE TO HIS TEMP WILL WATCH [place] PER JAZZ PISANO. IMM SERVED AND EXPLAINED DCP- Discharge Planning Updated by [email or web address]: Marge Jung on 02/14/18 3:[address] Patient Name: RAPHAEL BARGER Admission Status: Elective Accout number: [id number] Admission Date: 02-13-2018 : 1960 Admission Diagnosis: Attending: MAGGI PIMENTEL Current LOS: 1 Anticipated DC Date: Planned Disposition: Inpatient Rehab Primary Insurance: MEDICARE A & B Discharge Planning Comments: CM met with patient to asses discharge planning needs. Patient lives home alone and would like to go to our Inpatient rehab at [facility]. He will need a CPM at [place]. His sister will be his cdl company driver home. He has one step to enter in his home. He has a glucometer , BSC, and walker at home CM will continue to follow and assist with DC planning as needed Director Revenue: Marge Jung DCPIA - Discharge Planning Initial Assessment Updated by [email or web address]: Marge Jung on 02/14/18 3:58 pm * Is the patient Alert and Oriented? Yes * How many steps to enter\exit or inside your home? * PCP JENS * Pharmacy [facility] [address] * Preadmission Environment Home Alone * ADLs Independent * Equipment Bedside Commode Glucometer Rolling Walker * List name and contact numbers for known caregivers / representatives who currently or will assist patient after discharge: SU [phone] * Verbal permission to speak to the caregivers and representatives has been obtained from the patient. N/A * Community resources currently utilized None * Additional services required to return to the preadmission environment? Yes * Can the patient safely return to the preadmission environment? No * Has this patient been hospitalized within the prior 30 days at any hospital? No Coverage Notice Reviewer: [id number] Chelo Jung Notice Issued Date-Time: 02/16/2018 12:30 Notice Type: IM Discharge Notice Notice Delivered To: Patient Relationship to Patient: Trade Manager Name: Delivery Method: HAND - Hand Delivered Leana Days: Prior Verbal Notification: Recipient Understood Notice: Yes Recipient Signature: Yes Med Rec Note Co-signed by Attending: Coverage Notice Comment: Reviewer: [email or web address] Chelo Jung Notice Issued Date-Time: 02/20/2018 11:50 Notice Type: IM Discharge Notice Notice Delivered To: Patient Relationship to Patient: Trade Manager Name: Delivery Method: HAND - Hand Delivered Leana Days: Prior Verbal Notification: Recipient Understood Notice: Yes Recipient Signature: Yes Med Rec Note Co-signed by Attending: Coverage Notice Comment: Last DP export: 02/18/18 2:42 p Patient Name: RAPHAEL BARGER Page [id number] at 1203 All edits/amendments must be made on the electronic document DICTATION DATE: 02/20/181202 INDUSTRIAL CONVEYOR BELT REPAIRER: DM 02/20/181202 RPT#: [id number] DC DATE: STATUS: ADM IN [address] [place] [address] END OF REPORT
--- NOTE | ~2018-02-13 | OP ---
PATIENT NAME: RAPHAEL BARGRE MEDICAL RECORD: [id number] :60 LOCATION:D.MS [id number] ADMISSION DATE:02/13/18 SURGEON: MAGGI PIMENTEL MD DATE OF OPERATION: 02/13/2018 PREOPERATIVE DIAGNOSIS: Degenerative arthritis of the right knee. POSTOPERATIVE DIAGNOSIS: Degenerative arthritis of the right knee. PROCEDURE: Right total knee arthroplasty. SURGEON: Maggi Pimentel MD OVEN LOADER: Luis Goyal APN ANESTHESIA: General. INTRAOPERATIVE COMPLICATIONS: None. SUMMARY OF PATHOLOGIC FINDINGS: The patient has extensive osteoarthritis. IMPLANTS USED: Thelma triathlon total knee arthroplasty size 7 distal femur, size 7 tibial baseplate, size 7 x 9 tibial insert and a 36 patella all press fit. OPERATIVE SUMMARY IN DETAIL: After obtaining the appropriate preoperative orthopedic surgery consent as well as anesthetic consultation, evaluation and clearance, the patient was brought to the operating room and placed on the operating table in supine position. After general laryngeal mask airway was administered, tourniquet was placed in the proximal aspect of the right lower extremity. Right lower extremity was then prepped and draped in routine sterile fashion. The leg was elevated and exsanguinated, tourniquet inflated to 350 mmHg. Routine midline incision made, taken down for paramedian arthrotomy. Patella was everted, distal femur was exposed. Soft tissue excision was done in the usual fashion. Distal femoral intramedullary guide hole was created for distal femoral cutting. At this point, the proximal tibia was exposed. Further soft tissue excision was then followed by creation of an intramedullary guide hole for proximal tibial cutting. Proximal tibia was cut. Appropriate measurements were taken. Distal femoral chamfer cuts were made. This was followed by placing of the trial components corresponding to the above final implants were placed, was taken through range of motion and found to be stable in all planes. Final distal femoral and proximal tibial preparation was then followed by excision of the arthritic patellar surface in preparation for a press fit metal-backed patella. Wound was then copiously irrigated. Bone ends were dried. A press fit components were put into place. Knee was taken through range of motion and found to be stable in all planes. Having completed this, the wound was copiously irrigated and standard vancomycin, clindamycin and TXA were placed in the wound. The paramedian arthrotomy was closed by Luis Planzo, PLANISHING PRESS OPERATOR, using #2 Ethibond followed by #1 Vicryl, 2-0 Vicryl and skin nick. Sterile dressings were applied. Tourniquet was deflated. The patient was awakened and taken to recovery room in stable condition. All final needle and sponge counts were correct. TRANSINT:[id number] Voice Confirmation ID: [id number] DOCUMENT ID: [id number] OPERATIVE REPORT [id number] RAPHAEL BARGER MD, MAGGI LIM at 1130 CC: [id number] DICTATION DATE: 02/16/18 1518 DECAL MAKER: 02/16/18 2301 ADM IN [facility] [address] [place] [id number]
--- NOTE | ~2018-02-13 | MORECARE ---
CASE MANAGEMENT DISCHARGE SUMMARY PATIENT: RAPHAEL BARGER UNIT: [id number] ADM DATE: 02/13/18 AGE: 57 : 60 SEX: M ROOM/BED: D.2214 AUTHOR: HAYDER,DOC PHYSICIAN: REFERRING PHYSICIAN: MAGGI PIMENTEL MD DATE OF SERVICE: 02/17/18 Discharge Plan Patient Name: RAPHAEL BARGER Facility: [facility]:[place] : 1960 Planned Disposition: Inpatient Rehab Anticipated Discharge Date: Discharge Date: Expected LOS: Initial Reviewer: [email or web address] Initial Review Date: 02/13/2018 Generated: 02/17/18 10:12 am Comments DCP- Discharge Planning Updated by [email or web address]: Marge Jung on 02/16/18 12:[address] PATIENT HAS BEEN ACCEPTED TO INPATIENT REHAB, DUE TO HIS TEMP WILL WATCH TONIGHT PER JAZZ PISANO. IMM SERVED AND EXPLAINED DCP- Discharge Planning Updated by [id number]: Marge Jung on 02/14/18 3:[address] Patient Name: RAPHAEL BARGER Admission Status: Elective Accout number: [id number] Admission Date: 02-13-2018 : 1960 Admission Diagnosis: Attending: MAGGI PIMENTEL Current LOS: 1 Anticipated DC Date: Planned Disposition: Inpatient Rehab Primary Insurance: MEDICARE A & B Discharge Planning Comments: CM met with patient to asses discharge planning needs. Patient lives home alone and would like to go to our Inpatient rehab at [facility]. He will need a CPM at [place]. His sister will be his cdl company driver home. He has one step to enter in his home. He has a glucometer , BSC, and walker at home CM will continue to follow and assist with DC planning as needed Railroad Car Checker: Marge Jung DCPIA - Discharge Planning Initial Assessment Updated by [email or web address]: Marge Jung on 02/14/18 3:58 pm * Is the patient Alert and Oriented? Yes * How many steps to enter\exit or inside your home? * PCP JENS * [facility]acy [facility] [address] * Preadmission Environment Home Alone * ADLs Independent * Equipment Bedside Commode Glucometer Rolling Walker * List name and contact numbers for known caregivers / representatives who currently or will assist patient after discharge: SU [phone] * Verbal permission to speak to the caregivers and representatives has been obtained from the patient. N/A * Community resources currently utilized None * Additional services required to return to the preadmission environment? Yes * Can the patient safely return to the preadmission environment? No * Has this patient been hospitalized within the prior 30 days at any hospital? No Coverage Notice Reviewer: [id number] Chelo Jung Notice Issued Date-Time: 02/16/2018 12:30 Notice Type: IM Discharge Notice Notice Delivered To: Patient Relationship to Patient: Presser Hand Name: Delivery Method: HAND - Hand Delivered Leana Days: Prior Verbal Notification: Recipient Understood Notice: Yes Recipient Signature: Yes Med Rec Note Co-signed by Attending: Coverage Notice Comment: Last DP export: 02/16/18 12:51 p Patient Name: RAPHAEL BARGER Page 40684 at 0912 All edits/amendments must be made on the electronic document DICTATION DATE: 02/17/18911 STEAM DISTRIBUTION SUPERVISOR: JOSE 02/17/18911 RPT#: [id number] DC DATE: STATUS: ADM IN [facility] [address] [place] [address] END OF REPORT
--- NOTE | ~2018-02-13 | MORECARE ---
CASE MANAGEMENT DISCHARGE SUMMARY PATIENT: RAPHAEL BARGER UNIT: [id number] ADM DATE: 02/13/18 AGE: 57 : 60 SEX: M ROOM/BED: D.2214 AUTHOR: HAYDER,DOC PHYSICIAN: REFERRING PHYSICIAN: MAGGI PIMENTEL MD DATE OF SERVICE: 02/21/18 Discharge Plan Patient Name: RAPHAEL BARGER Facility: [facility]:[place] : 1960 Planned Disposition: Inpatient Rehab Anticipated Discharge Date: Discharge Date: 02/20/2018 Expected LOS: 0 Initial Reviewer: [email or web address] Initial Review Date: 02/13/2018 Generated: 02/21/18 5:56 pm Comments DCP- Discharge Planning Updated by [email or web address]: Marge Jung on 02/20/18 10:[address] Patient will be discharging to inpatient rehab today, room 1119 a. imm served and explained DCP- Discharge Planning Updated by [id number]: Cayla Issa on 02/18/18 2:[address] 1532 TC TO [facility] WEEKEND REHAB SCREENER. LEFT VM MESSAGE. QUESTION IF PATIENT WOULD TRANSFER THIS (TUESDAY) OR TUESDAY. PATIENT STILL WITH LOW GRADE TEMP. AWAIT CB. DCP- Discharge Planning Updated by [id number]: Marge Jung on 02/17/18 3:[address] [facility] WITH INPATIENT REHAB STATED THAT THEY WOULD ACCEPT PATIENT ON TUESDAY IF HE IS STABLE TO BE DC DCP- Discharge Planning Updated by [email or web address]: Marge Jung on 02/16/18 12:[address] PATIENT HAS BEEN ACCEPTED TO INPATIENT REHAB, DUE TO HIS TEMP WILL WATCH [place] PER JAZZ PISANO. IMM SERVED AND EXPLAINED DCP- Discharge Planning Updated by [email or web address]: Marge Jung on 02/14/18 3:[address] Patient Name: RAPHAEL BARGER Admission Status: Elective Accout number: [id number] Admission Date: 02-13-2018 : 1960 Admission Diagnosis: Attending: MAGGI PIMENTEL Current LOS: 1 Anticipated DC Date: Planned Disposition: Inpatient Rehab Primary Insurance: MEDICARE A & B Discharge Planning Comments: CM met with patient to asses discharge planning needs. Patient lives home alone and would like to go to our Inpatient rehab at [facility]. He will need a CPM at [place]. His sister will be his driver manager home. He has one step to enter in his home. He has a glucometer , BSC, and walker at home CM will continue to follow and assist with DC planning as needed Benchroom Shop Optician: Marge Jung DCPIA - Discharge Planning Initial Assessment Updated by [id number]: Marge Jung on 02/14/18 3:58 pm * Is the patient Alert and Oriented? Yes * How many steps to enter\exit or inside your home? * PCP JENS * Pharmacy [facility] [address] * Preadmission Environment Home Alone * ADLs Independent * Equipment Bedside Commode Glucometer Rolling Walker * List name and contact numbers for known caregivers / representatives who currently or will assist patient after discharge: SU [phone] * Verbal permission to speak to the caregivers and representatives has been obtained from the patient. N/A * Community resources currently utilized None * Additional services required to return to the preadmission environment? Yes * Can the patient safely return to the preadmission environment? No * Has this patient been hospitalized within the prior 30 days at any hospital? No Coverage Notice Reviewer: [id number] Chelo Jung Notice Issued Date-Time: 02/16/2018 12:30 Notice Type: IM Discharge Notice Notice Delivered To: Patient Relationship to Patient: Bdr Name: Delivery Method: HAND - Hand Delivered Leana Days: Prior Verbal Notification: Recipient Understood Notice: Yes Recipient Signature: Yes Med Rec Note Co-signed by Attending: Coverage Notice Comment: Reviewer: [email or web address] Chelo Jung Notice Issued Date-Time: 02/20/2018 11:50 Notice Type: IM Discharge Notice Notice Delivered To: Patient Relationship to Patient: Bdr Name: Delivery Method: HAND - Hand Delivered Leana Days: Prior Verbal Notification: Recipient Understood Notice: Yes Recipient Signature: Yes Med Rec Note Co-signed by Attending: Coverage Notice Comment: Last DP export: 02/20/18 11:03 Patient Name: RAPHAEL BARGER Page [phone] at 1656 All edits/amendments must be made on the electronic document DICTATION DATE: 02/21/181654 SPORTS NUTRITIONIST: JOSE 02/21/181654 RPT#: [id number] DC DATE:02/20/18 STATUS: DIS IN [facility] [address] [facility] [place] [address] END OF REPORT
--- NOTE | ~2018-02-13 | MORECARE ---
CASE MANAGEMENT DISCHARGE SUMMARY PATIENT: RAPHAEL BARGER UNIT: [id number] ADM DATE: 02/13/18 AGE: 57 : 60 SEX: M ROOM/BED: D.2214 AUTHOR: GORDON SINGLETARY PHYSICIAN: REFERRING PHYSICIAN: MAGGI PIMENTEL MD DATE OF SERVICE: 02/18/18 Discharge Plan Patient Name: RAPHAEL BARGER Facility: [facility]:[place] : 1960 Planned Disposition: Inpatient Rehab Anticipated Discharge Date: Discharge Date: Expected LOS: Initial Reviewer: [id number] Initial Review Date: 02/13/2018 Generated: 02/18/18 4:42 pm Comments DCP- Discharge Planning Updated by [email or web address]: Cayla Issa on 02/18/18 2:[address] 1532 TC TO [facility], WEEKEND REHAB SCREENER. LEFT VM MESSAGE. QUESTION IF PATIENT WOULD TRANSFER THIS (TUESDAY) OR TUESDAY. PATIENT STILL WITH LOW GRADE TEMP. AWAIT CB. DCP- Discharge Planning Updated by [email or web address]: Marge Jung on 02/17/18 3:[address] [facility] WITH INPATIENT REHAB STATED THAT THEY WOULD ACCEPT PATIENT ON TUESDAY IF HE IS STABLE TO BE DC DCP- Discharge Planning Updated by [email or web address]: Marge Jung on 02/16/18 12:[address] PATIENT HAS BEEN ACCEPTED TO INPATIENT REHAB, DUE TO HIS TEMP WILL WATCH TONIGHT PER JAZZ PISANO. IMM SERVED AND EXPLAINED DCP- Discharge Planning Updated by [email or web address]: Marge Jung on 02/14/18 3:[address] Patient Name: RAPHAEL BARGER Admission Status: Elective Accout number: [id number] Admission Date: 02-13-2018 : 1960 Admission Diagnosis: Attending: MAGGI PIMENTEL Current LOS: 1 Anticipated DC Date: Planned Disposition: Inpatient Rehab Primary Insurance: MEDICARE A & B Discharge Planning Comments: CM met with patient to asses discharge planning needs. Patient lives home alone and would like to go to our Inpatient rehab at [facility]. He will need a CPM at [place]. His sister will be his courtesy bus driver home. He has one step to enter in his home. He has a glucometer , BSC, and walker at home CM will continue to follow and assist with DC planning as needed Manager Heart Failure: Marge Jung DCPIA - Discharge Planning Initial Assessment Updated by [id number]: Marge Jung on 02/14/18 3:58 pm * Is the patient Alert and Oriented? Yes * How many steps to enter\exit or inside your home? * PCP JENS * [facility]acy [facility] [address] * Preadmission Environment Home Alone * ADLs Independent * Equipment Bedside Commode Glucometer Rolling Walker * List name and contact numbers for known caregivers / representatives who currently or will assist patient after discharge: SU [phone] * Verbal permission to speak to the caregivers and representatives has been obtained from the patient. N/A * Community resources currently utilized None * Additional services required to return to the preadmission environment? Yes * Can the patient safely return to the preadmission environment? No * Has this patient been hospitalized within the prior 30 days at any hospital? No Coverage Notice Reviewer: [id number] - Marge Jung Notice Issued Date-Time: 02/16/2018 12:30 Notice Type: IM Discharge Notice Notice Delivered To: Patient Relationship to Patient: Deputy Sheriff Name: Delivery Method: HAND - Hand Delivered Leana Days: Prior Verbal Notification: Recipient Understood Notice: Yes Recipient Signature: Yes Med Rec Note Co-signed by Attending: Coverage Notice Comment: Last DP export: 02/17/18 3:31 p Patient Name: RAPHAEL BARGER Page [id number] at 1542 All edits/amendments must be made on the electronic document DICTATION DATE: 02/18/18 1541 LEAD SETTER: JOSE 02/18/18 1541 RPT#: [id number] DC DATE: STATUS: ADM IN [facility] [address] [place] [address] END OF REPORT
[~2018-02-13 08:50] MED LIST changes: -DILAUDID4 MG
[2018-02-13 09:25] LABS: BASOPHILS 0.2 % (0-2); EOSINOPHILS 0 % (0-7); HEMATOCRIT 43.2 % (42.0-54.0); HEMOGLOBIN 14.2 g/dL (13.5-17.5); IMMATURE GRANULOCYTES 0.2 % (0-5); LYMPHOCYTES 23.4 % (15-50); MCH 31.1 pg (26.0-34.0); MCHC 32.9 g/dL (31.0-37.0); MCV 94.5 fL (80.0-100.0); MEAN PLATELET VOLUME 9.7 fL (7.4-10.4); NEUTROPHILS 65.2 % (40-80); PLATELET COUNT 180 10x3/uL (130-400); RBC 4.57 10x6/uL (4.20-6.10); RDW 13.3 % (11.5-14.5); WBC 5.3 10x3/uL (4.8-10.8)
[2018-02-13 09:33] LABS: ANION GAP 11.4 mmol/L (8-16); CALCIUM 8.8 mg/dL (8.5-10.1); CARBON DIOXIDE 30.1 mmol/L (21.0-32.0); CREATININE - SERUM 1.3 mg/dL (0.6-1.3); POTASSIUM - SERUM 4.5 mmol/L (3.5-5.1)
[2018-02-13 09:37] LABS: APTT 40.7 SECONDS (22.8-39.4); INR 1.07 (0.85-1.17); PROTIME 13.4 SECONDS (11.6-15.0)
[2018-02-13 09:53] LABS: APPEARANCE CLEAR (CLEAR); BACTERIA FEW /hpf (NONE SEEN); BILIRUBIN NEGATIVE (NEGATIVE); COLOR YELLOW (YELLOW); EPITHELIAL CELLS 0-5 /hpf (0-5); GLUCOSE NEGATIVE (NEGATIVE); GRANULAR CAST RARE /lpf (NONE SEEN); HYALINE CAST 0-5 /lpf (NONE SEEN); KETONE NEGATIVE (NEGATIVE); MUCUS >1+ /lpf (NONE SEEN); NITRITE NEGATIVE (NEGATIVE); PROTEIN NEGATIVE (NEGATIVE); SPECIFIC GRAVITY 1.025 (1.005-1.020); WHITE CELLS - URINE 0-5 /hpf (0-5)
[2018-02-13] MEDS ORDERED: DILAUDID4 MG (10:20)
[2018-02-14 05:24] LABS: MCH 30.9 pg (26.0-34.0); MCHC 33.2 g/dL (31.0-37.0); MEAN PLATELET VOLUME 9.9 fL (7.4-10.4); RDW 13.2 % (11.5-14.5)
[2018-02-14 05:33] LABS: HEMATOCRIT 33.1 % (42.0-54.0); RBC 3.56 10x6/uL (4.20-6.10); WBC 10.7 10x3/uL (4.8-10.8)
[2018-02-14 08:15] VITALS: BP 109/49
[2018-02-14 13:25] VITALS: BP 151/74
[2018-02-14 16:38] LABS: BASOPHILS 0.1 % (0-2); EOSINOPHILS 0.1 % (0-7); IMMATURE GRANULOCYTES 0.1 % (0-5); MCH 30.4 pg (26.0-34.0); MCHC 32.4 g/dL (31.0-37.0); MCV 93.9 fL (80.0-100.0); MEAN PLATELET VOLUME 9.7 fL (7.4-10.4); MONOCYTES 8.6 % (2-11); NEUTROPHILS 72.1 % (40-80); PLATELET COUNT 162 10x3/uL (130-400); RBC 3.62 10x6/uL (4.20-6.10); RDW 13.4 % (11.5-14.5)
[2018-02-14 22:49] VITALS: BP 116/66
[2018-02-15] VITALS (7 sets, daily range): BP systolic 119–143; BP diastolic 66–86
[2018-02-15 04:45] LABS: HEMOGLOBIN 10.1 g/dL (13.5-17.5); MCH 30.4 pg (26.0-34.0); MCHC 32.6 g/dL (31.0-37.0); MCV 93.4 fL (80.0-100.0); MEAN PLATELET VOLUME 9.8 fL (7.4-10.4); RBC 3.32 10x6/uL (4.20-6.10); RDW 13.5 % (11.5-14.5); WBC 7.7 10x3/uL (4.8-10.8)
[2018-02-16 05:11] VITALS: BP 107/57
[2018-02-16 08:33] VITALS: BP 122/71
[2018-02-16 12:00] VITALS: BP 114/62
[2018-02-16 16:20] VITALS: BP 111/59
[2018-02-16 20:00] VITALS: BP 130/73
[2018-02-17] VITALS: BP 112/76
[2018-02-17 03:42] VITALS: Ht 182.9 cm; Wt 136.4 kg
[2018-02-17 04:00] VITALS: BP 112/70
[2018-02-17 06:14] LABS: BASOPHILS 0.2 % (0-2); EOSINOPHILS 0.6 % (0-7); HEMATOCRIT 29.5 % (42.0-54.0); HEMOGLOBIN 9.4 g/dL (13.5-17.5); IMMATURE GRANULOCYTES 0.6 % (0-5); LYMPHOCYTES 18.2 % (15-50); MCH 29.7 pg (26.0-34.0); MCHC 31.9 g/dL (31.0-37.0); MCV 93.4 fL (80.0-100.0); MEAN PLATELET VOLUME 10.1 fL (7.4-10.4); MONOCYTES 11.8 % (2-11); NEUTROPHILS 68.6 % (40-80); RBC 3.16 10x6/uL (4.20-6.10); RDW 13.4 % (11.5-14.5); WBC 6.2 10x3/uL (4.8-10.8)
[2018-02-17 06:15] LABS: PLATELET COUNT 153 10x3/uL (130-400)
[2018-02-17 09:03] VITALS: BP 138/79
[2018-02-17 12:33] VITALS: BP 102/69
[2018-02-17 15:35] LABS: % SATURATION 5 % (15-55); IRON 13 ug/dl (35-150); TOTAL IRON BIND CAPACITY 243 ug/dl (260-445); UNSAT IRON BIND CAPACITY 230 ug/dl (150-375)
[2018-02-17 16:38] VITALS: BP 134/72
[2018-02-17 19:54] VITALS: BP 140/84
[2018-02-18] VITALS: BP 110/61
[2018-02-18 04:00] VITALS: BP 128/72
[2018-02-18 08:45] VITALS: BP 116/74
[2018-02-18 11:53] VITALS: BP 144/78
[2018-02-18 15:33] VITALS: BP 125/80
[2018-02-18 19:38] VITALS: BP 142/73
[2018-02-19] VITALS: BP 115/67; BP 148/84
[2018-02-19 04:00] VITALS: BP 125/71
[2018-02-19 08:26] VITALS: BP 129/65
[2018-02-19 11:32] LABS: BASOPHILS 0.2 % (0-2); EOSINOPHILS 3.5 % (0-7); HEMATOCRIT 29.5 % (42.0-54.0); HEMOGLOBIN 9.6 g/dL (13.5-17.5); IMMATURE GRANULOCYTES 0.7 % (0-5); MCH 29.8 pg (26.0-34.0); MCHC 32.5 g/dL (31.0-37.0); MCV 91.6 fL (80.0-100.0); MONOCYTES 14.9 % (2-11); NEUTROPHILS 55.7 % (40-80); RBC 3.22 10x6/uL (4.20-6.10); RDW 13.5 % (11.5-14.5); WBC 4.2 10x3/uL (4.8-10.8)
[2018-02-19 11:42] LABS: PLATELET COUNT 185 10x3/uL (130-400)
[2018-02-19 11:57] VITALS: BP 139/84
[2018-02-19 15:13] VITALS: BP 119/67
[2018-02-19 20:21] VITALS: BP 110/72
[2018-02-20] MEDS ORDERED: ELIQUIS2.5 MG PO (07:40)
[2018-02-20] MEDS ORDERED: DILAUDID4 MG PO (07:41)
[2018-02-20 08:05] VITALS: BP 115/73
[2018-02-20 12:10] VITALS: BP 130/68
== END 2018-02-20 13:04 | DRG 470 ==
LOC: D.MS 08:50 → D.SDCHOLD 08:50 → D.MS 14:22 → D.SDCHOLD 15:00 → D.MS 02-20 13:04
PROVIDERS: Internal Medicine Hematology & Oncology; Orthopaedic Surgery
PROC: 0SRC0JZ Replacement of Right Knee Joint with Synthetic Substitute, Open Approach (ICD-10-PCS; principal; 2018-02-13 11:15)
DX: M17.11 Unilateral primary osteoarthritis, right knee (principal); Z68.41 Body mass index [BMI] 40.0-44.9, adult; E72.12 Methylenetetrahydrofolate reductase deficiency; E11.9 Type 2 diabetes mellitus without complications; I10 Essential (primary) hypertension; E66.9 Obesity, unspecified; G47.33 Obstructive sleep apnea (adult) (pediatric)

== ENCOUNTER 2018-02-20 12:23 | Inpatient (IN) | payer MEDICARE, BC ==
[~2018-02-20] VITALS: Ht 182.9 cm; Wt 135.2 kg
--- NOTE | ~2018-02-20 | RHP ---
PATIENT: RAPHAEL BARGER MEDICAL RECORD: [id number] ACCOUNT: [id number] [id number] : 60 ADMISSION DATE: 02/20/18 REHABILITATION HISTORY AND PHYSICAL EXAMINATION POST ADMISSION PHYSICIAN EXAMINATION ADMITTING DIAGNOSES: Debility after a right total knee arthroscopy and postop complications. HISTORY OF PRESENT ILLNESS: The patient is a 57-year-old gentleman with debility secondary to right total knee replacement and postop complications in a morbidly obese gentleman with a BMI greater than 40. 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 He was admitted to the hospital on 02/13/2018 for a right total knee. Postop was complicated by intractable pain, blood loss anemia, thrombocytopenia, hypertension, fever with a T-max of 101.5, postop bleeding, and inability to bear weight on his operative leg. Previously, he was living independent with ADLs and mobility. Currently, he is mod-to-max assist for ADLs and mobility. He complains of 10/10 pain, relieved by Dilaudid, Marmora, and also Toradol. He has a dressing to his right knee, connected to an AltaValve due to excessive bleeding from the operative site. He has been able to stand at bedside with max assist times 2 and walk 3 feet to the chair. He has poor balance and fatigues easily. He is progressing with therapy now and is able to ambulate 120 feet with a walk-through pattern. ____ high risk for falls. He wants to be able to return home at his prior level of functioning or better. COMORBIDITIES: Include postop anemia, postop fever, iron deficient anemia, hypotension, tachycardia, thrombocytopenia, morbid obesity, irretractable pain, factor V deficiency, diabetes, neuropathy, gastroesophageal reflux disease, arthritis, depression, and anxiety. PAST MEDICAL HISTORY: Significant for neuropathy, diabetes, thyroid problems, peripheral vascular disease, hyperlipidemia, hypertension, sleep apnea, prostate problems, factor V deficiency, acid reflux, prostate problems, depression, and anxiety. PAST SURGICAL HISTORY: Includes shoulder repair, prostatectomy. He has had lymph node biopsies and knee surgery. ALLERGIES: PENICILLIN. CURRENT MEDICATIONS: Include thiamine 100 mg daily, B6 100 mg daily, Lyrica 75 mg daily, potassium 20 mEq daily, Protonix 40 mg daily, Synthroid 100 mcg daily, Lasix 40 mg daily, folic acid 1 mg daily, TriCor 145 mg daily, Uloric 80 mg daily, B12 3000 mcg daily, colchicine 0.6 mg daily, Lipitor 10 mg daily, Dilaudid 4 mg q.4 hours p.r.n., Coreg 6.25 mg b.i.d. with meals, Eliquis 2.5 mg b.i.d., Elavil 50 mg q.h.s., and Xanax 1 mg t.i.d. p.r.n. HABITS: No current alcohol or tobacco use. FAMILY HISTORY: Noncontributory. SOCIAL HISTORY: The patient hopes to return back home and get back to his prior HISTORY AND PHYSICAL [id number] RAPHAEL BARGER level of functioning. REVIEW OF SYSTEMS: GENERAL: Does complain of weakness and fatigue. HEENT: Denies cold, cough, or congestion. CARDIOVASCULAR: He denies any chest pain. PHYSICAL EXAMINATION: VITAL SIGNS: Stable, afebrile. GENERAL: A morbidly obese gentleman, in no acute distress, alert upon exam. HEENT: Normocephalic and atraumatic. Mucosa moist. NECK: Supple. No lymphadenopathy. LUNGS: Clear at this time. HEART: Regular rate and rhythm. ABDOMEN: Benign. EXTREMITIES: Does have a dressing and drain to his knee. NEUROLOGIC: Seems intact. LABORATORY DATA: His white count is 7.2, H&H 9.7 and 30.4. His MCV is elevated at 100. His platelet count is 270. His sodium is 136, potassium 4.3, BUN and creatinine of 26 and 0.9, and blood sugar is noted to be 104. ASSESSMENT: This is a 57-year-old gentleman admitted to the rehab with a working diagnoses of complications secondary to a total knee replacement and debility. The patient has potential to make improvement. We instituted the following multidisciplinary therapies including, but not limited to physical, occupational, respiratory, speech, nutritional services, prosthetics and orthotics. Given his complex medical condition and risk for more complications, rehabilitation services cannot be provided at a low level of care such as skilled nurse facility. PLAN: 1. Admit to [facility] rehab for intensive inpatient therapy to include the following disciplines: A. Physical therapy to improve gait, all transfer skills and bed mobility to a modified independent level. B. Occupational therapy to improve activities of daily living to a modified independent level. C. Case management to assist with discharge planning and placement options. D. Nutrition to assist with nutritional needs. E. Rehabilitation nursing to assist in monitoring the patient's underlying medical conditions and to assist with any type of bowel or bladder management. 2. The patient's current medications and medical care will be continued. We watch his psych to his knee closely. 3. Watch for any other bleeding complications. 4. We will follow him up in the a.m. TRANSINT:[id number] Voice Confirmation ID: [id number] DOCUMENT ID: [id number] MINO notes whether there has been none or any medical/functional change since admission: - No change since the PAS HISTORY AND PHYSICAL [id number] RAPHAEL BARGER attests patient continues to be appropriate for IRF: - Remains appropriate for the [facility] ZARINA ESPINOZA MD at 1217 CC: [id number] DICTATION DATE: 02/21/18 0941 CHIEF DESIGN BRANCH: 02/21/18 1141 ADM IN [facility] [address] [place] [address]
[~2018-02-20 12:23] MED LIST changes: +DILAUDID4 MG; +DILAUDID4 MG PO; +ELIQUIS2.5 MG PO
[2018-02-20 19:48] VITALS: BP 114/78
[2018-02-21 06:26] LABS: BASOPHILS 0.6 % (0-2); HEMATOCRIT 30.4 % (42.0-54.0); HEMOGLOBIN 9.7 g/dL (13.5-17.5); IMMATURE GRANULOCYTES 0.3 % (0-5); LYMPHOCYTES 21.3 % (15-50); MCH 31.9 pg (26.0-34.0); MCHC 31.9 g/dL (31.0-37.0); MEAN PLATELET VOLUME 9.3 fL (7.4-10.4); MONOCYTES 10.3 % (2-11); NEUTROPHILS 63.5 % (40-80); RBC 3.04 10x6/uL (4.20-6.10); RDW 14.3 % (11.5-14.5)
[2018-02-21 06:40] LABS: CALC OSMOLALITY 276 mosm/kg (275-300); CALCIUM 8.1 mg/dL (8.5-10.1); CARBON DIOXIDE 33.7 mmol/L (21.0-32.0); CHLORIDE - SERUM 99 mmol/L (98-107); CREATININE - SERUM 0.9 mg/dL (0.6-1.3); GLUCOSE 104 mg/dL (74-106); POTASSIUM - SERUM 4.3 mmol/L (3.5-5.1); SODIUM 136 mmol/L (136-145); UREA NITROGEN 26 mg/dL (7-18); eGFR NON AFRICAN AMERICAN > 90 mL/min (90-120)
[2018-02-21 06:46] LABS: PLATELET COUNT 270 10x3/uL (130-400); WBC 7.2 10x3/uL (4.8-10.8)
[2018-02-21 08:00] VITALS: BP 112/61
[2018-02-21 13:17] VITALS: Ht 182.9 cm; Wt 135.2 kg
[2018-02-21 23:33] VITALS: BP 116/62
[2018-02-22 06:57] LABS: BASOPHILS 0.4 % (0-2); EOSINOPHILS 0 % (0-7); HEMATOCRIT 30.3 % (42.0-54.0); HEMOGLOBIN 9.9 g/dL (13.5-17.5); IMMATURE GRANULOCYTES 1.8 % (0-5); LYMPHOCYTES 17.4 % (15-50); MCH 29.9 pg (26.0-34.0); MCHC 32.7 g/dL (31.0-37.0); MONOCYTES 11.3 % (2-11); NEUTROPHILS 69.1 % (40-80); PLATELET COUNT 240 10x3/uL (130-400); RBC 3.31 10x6/uL (4.20-6.10); RDW 13.9 % (11.5-14.5); WBC 7.2 10x3/uL (4.8-10.8)
[2018-02-22 06:58] LABS: ANION GAP 10.6 mmol/L (8-16); CALCIUM 8.6 mg/dL (8.5-10.1); CARBON DIOXIDE 30.1 mmol/L (21.0-32.0); POTASSIUM - SERUM 3.7 mmol/L (3.5-5.1)
[2018-02-22 06:59] LABS: CREATININE - SERUM 1.2 mg/dL (0.6-1.3)
[2018-02-22 07:05] LABS: MCV 91.5 fL (80.0-100.0)
[2018-02-22 08:00] VITALS: BP 126/74
[2018-02-22 19:00] VITALS: BP 97/57
[2018-02-23 08:00] VITALS: BP 121/74
[2018-02-24 02:29] VITALS: BP 134/71
[2018-02-24 06:58] LABS: BASOPHILS 0.2 % (0-2); EOSINOPHILS 2.4 % (0-7); HEMATOCRIT 31.6 % (42.0-54.0); HEMOGLOBIN 10.3 g/dL (13.5-17.5); IMMATURE GRANULOCYTES 2.1 % (0-5); LYMPHOCYTES 22.7 % (15-50); MCH 29.7 pg (26.0-34.0); MCHC 32.6 g/dL (31.0-37.0); MCV 91.1 fL (80.0-100.0); MEAN PLATELET VOLUME 8.9 fL (7.4-10.4); MONOCYTES 11.2 % (2-11); NEUTROPHILS 61.4 % (40-80); PLATELET COUNT 256 10x3/uL (130-400); RBC 3.47 10x6/uL (4.20-6.10); RDW 14.2 % (11.5-14.5); WBC 6.2 10x3/uL (4.8-10.8)
[2018-02-24 07:50] LABS: ANION GAP 13.4 mmol/L (8-16); CALCIUM 8.6 mg/dL (8.5-10.1); CARBON DIOXIDE 31.2 mmol/L (21.0-32.0); CREATININE - SERUM 1.2 mg/dL (0.6-1.3); POTASSIUM - SERUM 3.6 mmol/L (3.5-5.1)
[2018-02-24 08:00] VITALS: BP 117/68
[2018-02-24 19:00] VITALS: BP 124/78
[2018-02-25 08:00] VITALS: BP 112/67
[2018-02-26 08:00] VITALS: BP 124/72
[2018-02-26 20:00] VITALS: BP 140/76
[2018-02-27 06:58] LABS: BASOPHILS 0.3 % (0-2); EOSINOPHILS 3.2 % (0-7); HEMATOCRIT 31.8 % (42.0-54.0); HEMOGLOBIN 10.1 g/dL (13.5-17.5); IMMATURE GRANULOCYTES 2.3 % (0-5); LYMPHOCYTES 24.2 % (15-50); MCH 29.1 pg (26.0-34.0); MCHC 31.8 g/dL (31.0-37.0); MCV 91.6 fL (80.0-100.0); MEAN PLATELET VOLUME 8.9 fL (7.4-10.4); PLATELET COUNT 299 10x3/uL (130-400); RBC 3.47 10x6/uL (4.20-6.10); RDW 14.4 % (11.5-14.5); WBC 6.2 10x3/uL (4.8-10.8)
[2018-02-27 07:20] LABS: ANION GAP 13.5 mmol/L (8-16); CALCIUM 9.2 mg/dL (8.5-10.1); CARBON DIOXIDE 29.3 mmol/L (21.0-32.0); CREATININE - SERUM 1.3 mg/dL (0.6-1.3); POTASSIUM - SERUM 3.8 mmol/L (3.5-5.1)
[2018-02-27 08:13] VITALS: BP 117/64
[2018-02-27 19:00] VITALS: BP 110/78
[2018-02-28 08:35] VITALS: BP 117/75
[2018-02-28 19:00] VITALS: BP 124/75
[2018-03-01 07:13] LABS: BASOPHILS 0.2 % (0-2); EOSINOPHILS 0 % (0-7); HEMOGLOBIN 10.4 g/dL (13.5-17.5); IMMATURE GRANULOCYTES 1.1 % (0-5); LYMPHOCYTES 36.2 % (15-50); MCH 28.7 pg (26.0-34.0); MCHC 31.5 g/dL (31.0-37.0); MCV 90.9 fL (80.0-100.0); MEAN PLATELET VOLUME 8.9 fL (7.4-10.4); NEUTROPHILS 53.5 % (40-80); RBC 3.63 10x6/uL (4.20-6.10); RDW 14.3 % (11.5-14.5); WBC 5.7 10x3/uL (4.8-10.8)
[2018-03-01 07:18] LABS: PLATELET COUNT 362 10x3/uL (130-400)
[2018-03-01 07:22] LABS: ANION GAP 12.3 mmol/L (8-16); CARBON DIOXIDE 28.6 mmol/L (21.0-32.0); CREATININE - SERUM 1.3 mg/dL (0.6-1.3); POTASSIUM - SERUM 3.9 mmol/L (3.5-5.1)
[2018-03-01 08:00] VITALS: BP 115/65
[2018-03-01] MEDS ORDERED: DILAUDID2 MG PO (08:59)
[2018-03-01 09:59] LABS: ALBUMIN 2.7 g/dL (3.4-5.0); BILIRUBIN - DIRECT 0.27 mg/dL (0.00-0.30); BILIRUBIN - INDIRECT 0.26 mg/dL (0.00-1.00); BILIRUBIN - TOTAL 0.53 mg/dL (0.2-1.3); PROTEIN - SERUM 6.5 g/dL (6.4-8.2)
== END 2018-03-01 12:15 | disposition home health service (06) | DRG 948 ==
LOC: D.REHAB 12:23
PROVIDERS: Emergency Medicine
DX: R53.81 Other malaise (principal); D68.2 Hereditary deficiency of other clotting factors; Z47.1 Aftercare following joint replacement surgery; Z96.651 Presence of right artificial knee joint; D50.9 Iron deficiency anemia, unspecified; R50.82 Postprocedural fever; I95.9 Hypotension, unspecified; R00.0 Tachycardia, unspecified; D69.6 Thrombocytopenia, unspecified; E66.01 Morbid (severe) obesity due to excess calories; E11.40 Type 2 diabetes mellitus with diabetic neuropathy, unspecified; K21.9 Gastro-esophageal reflux disease without esophagitis; F41.8 Other specified anxiety disorders; M19.90 Unspecified osteoarthritis, unspecified site; T84.84XD Pain due to internal orthopedic prosthetic devices, implants and grafts, subsequent encounter; E03.9 Hypothyroidism, unspecified; I10 Essential (primary) hypertension; I73.9 Peripheral vascular disease, unspecified; G47.33 Obstructive sleep apnea (adult) (pediatric)

== ENCOUNTER → 2018-04-28 16:11 | Outpatient (CLI) | payer MEDICARE, BC ==
[2018-02-21 13:17] VITALS: BMI 40.4
== END | disposition home or self-care (01) ==
LOC: D.CT 16:00
DX: M25.561 Pain in right knee (principal)

== ENCOUNTER → 2018-10-24 15:10 | Outpatient (CLI) | payer MEDICARE, BC ==
[2018-02-21 13:17] VITALS: BMI 40.4
== END | disposition home or self-care (01) ==
LOC: D.MRI 10-20 13:30
PROVIDERS: ATTEND Orthopaedic Surgery
DX: M54.12 Radiculopathy, cervical region (principal)